=== PATIENT | female | born 1995 | race Two or more races ===

== ENCOUNTER 2021-10-22 09:49 | Outpatient (CLI) | payer OTHER | END 2021-10-22 10:00 | disposition home or self-care (01) | LOC: SONOGRAMA 09:49 → RX STUDY 09:49 → SONOGRAMA 10:00 | PROVIDERS: ATTEND Obstetrics & Gynecology | DX: N88.8 Other specified noninflammatory disorders of cervix uteri (principal); N84.0 Polyp of corpus uteri ==